=== PATIENT | male | born 1990 | race Caucasian/White ===

== ENCOUNTER 2021-06-16 16:04 | Emergency (ER) | payer SELFPAY ==
[2021-06-16 16:16] VITALS: BP 129/78; PULSE 95; RESP 16; TEMP 36.7; O2SAT 98; BMI 21.2
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
[2021-06-16] MEDS: HYDROcodone-acetaminophen 5-325 mg Tablet 1 TAB PO (17:48)
== END 2021-06-16 18:01 | disposition home or self-care (01) ==
PROVIDERS: Emergency Provider Physician Assistant
DX: M25.561 Pain in right knee (principal); S22.018A Other fracture of first thoracic vertebra, initial encounter for closed fracture; V89.2XXA Person injured in unspecified motor-vehicle accident, traffic, initial encounter
CPT/HCPCS: 72128; 73562; 99283

== ENCOUNTER 2023-01-28 10:58 | Emergency (ER) | payer SELFPAY ==
[2023-01-28 11:02] VITALS: BMI 20.5
[2023-01-28 11:07] VITALS: BP 149/91; PULSE 75; RESP 18; TEMP 36.6; O2SAT 97
--- NOTE | 2023-01-28 11:39 | PC.PHAR ---
pt states he takes no rx or otc medications
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
[2023-01-28 13:00] VITALS: BP 152/107; PULSE 78; RESP 16; O2SAT 98
[2023-01-28 13:20] VITALS: BP 152/107; PULSE 78; RESP 16; O2SAT 98
== END 2023-01-28 13:21 | disposition left against medical advice (07) ==
PROVIDERS: Emergency Provider Emergency Medicine
DX: M54.2 Cervicalgia (principal); R51.9 Headache, unspecified; Y04.2XXA Assault by strike against or bumped into by another person, initial encounter; Z53.21 Procedure and treatment not carried out due to patient leaving prior to being seen by health care provider
CPT/HCPCS: 99281